=== PATIENT | female | born 1985 | race Caucasian/White ===

== ENCOUNTER 2021-07-27 19:51 | Emergency (ER) | payer SELFPAY ==
[~2021-07-27] VITALS: Ht 167.6 cm; Wt 70.0 kg
[2021-07-27] MEDS ORDERED: DIAZEPAM 5 MG TABLET PO ONE (21:00)
[2021-07-27] MEDS ORDERED: METH-773 MT (22:33)
[2021-07-27 23:00] VITALS: BP 117/71
== END 2021-07-27 23:00 | disposition home or self-care (01) ==
LOC: ER 19:51
DX: M54.42 Lumbago with sciatica, left side (principal); I10 Essential (primary) hypertension
CPT/HCPCS: 81025; 93970; 99284